=== PATIENT | male | born 1940 | race Caucasian/White ===

== ENCOUNTER 2023-03-03 20:31 | Inpatient (IN) | payer MEDICARE, OTHER ==
[~2023-03-03] VITALS: Ht 198.1 cm; Wt 68.0 kg
[2023-03-03 21:56] LABS: MEAN CORPUSCULAR HEMOGLOBIN 40.5 uug (23.8-33.4); MEAN CORPUSCULAR VOLUME 117.6 fL (73.0-96.2); PLATELET COUNT (AUTO) 204 K/uL (152-348)
[2023-03-03 22:16] LABS: CARBON DIOXIDE 23 mmol/L (21-32); CHLORIDE 100 mmol/L (98-107); CREATININE 1.1 mg/dL (0.6-1.3); UREA NITROGEN, BLOOD 15 mg/dL (7-18)
[2023-03-03 22:24] LABS: ALANINE AMINOTRANSFERASE 19 U/L (16-63); ALKALINE PHOSPHATASE 50 U/L (50-136); ASPARTATE AMINOTRANSFERASE 11 U/L (15-37); BILIRUBIN,DIRECT 0.2 mg/dL (0.0-0.2); BILIRUBIN,TOTAL 0.8 mg/dL (0.2-1.0); TOTAL PROTEIN, SERUM 7.1 g/dL (6.4-8.2)
[2023-03-03] MEDS ORDERED: HYDROMORPHONE 1 MG/1 ML DISP.SYRIN IV ONE (22:30)
[2023-03-03] MEDS ORDERED: HYDROMORPHONE 1 MG/1 ML DISP.SYRIN ONE (22:31)
--- NOTE | 2023-03-03 22:38 | NUR ---
Pt care continue as Diludid 1mg IVP given as ordered for pain 05/19.
[2023-03-03 23:00] LABS: LIPASE 20 U/L (73-393)
[2023-03-03 23:28] LABS: *BILIRUBIN,URIN NEGATIVE (NEGATIVE); *CLARITY,URINE CLEAR (CLEAR); *COLOR,URINE YELLOW (YELLOW); *KETONES,URINE 1+ (NEGATIVE); *UROBILINOGEN,URINE 0.2 E.U./dl (NORMAL); LEUKOCYTE ESTERASE ,URINE TRACE (NEGATIVE); NITRITE, URINE NEGATIVE (NEGATIVE); UGLUCOSE NEGATIVE (NEGATIVE)
[2023-03-03 23:29] LABS: *BLOOD, URINE TRACE (NEGATIVE)
[2023-03-03 23:31] LABS: BACTERIA,URINE FEW /HPF (NONE SEEN); SQUAMOUS EPITHELIAL CELL,UR NONE SEEN /HPF (NONE SEEN)
[2023-03-03] MEDS ORDERED: IOHEXOL 350 100 ML INFUS..BTL ONE (23:37)
[2023-03-03] MEDS ORDERED: SWABABLE VALVE TRANSFER SET EA MC ONE (23:37)
[2023-03-03] MEDS ORDERED: IV NORMAL SALINE 250 ML IV ONE (23:38)
[2023-03-04] MEDS ORDERED: HYDROMORPHONE 1 MG/1 ML DISP.SYRIN IV ONE (00:45)
[2023-03-04] MEDS ORDERED: HYDROMORPHONE 1 MG/1 ML DISP.SYRIN ONE (00:57)
[2023-03-04] MEDS ORDERED: ONDANSETRON 4 MG/2 ML VIAL IV PRN (01:00)
[2023-03-04] MEDS ORDERED: REMEDY ESSENTIAL ZINC PASTE 113 GM TP PRN (01:00)
[2023-03-04] MEDS ORDERED: MAGNESIUM HYDROXIDE 30 ML LIQUID UDC PO PRN (01:00)
[2023-03-04] MEDS ORDERED: TEMAZEPAM 15 MG CAPSULE PO PRN (01:00)
[2023-03-04] MEDS ORDERED: ACETAMINOPHEN 325 MG TABLET PO PRN (01:00)
[2023-03-04] MEDS ORDERED: HYDROCODONE/APAP 5-325MG TABLET PO PRN (01:00)
--- NOTE | 2023-03-04 01:00 | NUR ---
Artem Lambert called back Dr. Elizabeth patient was accepted.
--- NOTE | 2023-03-04 01:02 | NUR ---
Pt care continue as he is been medicated with Dilaudid 1mg IVP for pain 05/19 and will be admitted with [facility] and page at [phone] sent out with [employer] Judy is on .
--- NOTE | 2023-03-04 01:43 | NUR ---
Called third floor and gave report to Janett RENAE.
[2023-03-04 02:04] VITALS: BP 152/85; TEMP 98.2; O2SAT 97
[2023-03-04] MEDS: HYDROMORPHONE 1 MG/1 ML DISP.SYRIN IV PRN ×3 (02:14→10:36)
--- NOTE | 2023-03-04 02:44 | NUR ---
Received this pt from ER, via demetrius, alert oriented x 4, verbally responsive, continent, in room air, able to walk with cane. Upon admission pt was sleepy, unable to question completely. He said didn't have BM x 3 day, and complained from severe abdominal pain. Given mom and Dilaudid IV. Pt has HX; of pancreatic cancer. Vital signs within normal level. All needs are attended in this time.
[2023-03-04] MEDS: PANTOPRAZOLE SODIUM 40 MG TABLET.DR PO SCH (06:43)
[2023-03-04] MEDS ORDERED: DIPH1TAB PO (11:13)
[2023-03-04] MEDS ORDERED: BISA10SU11 RC (11:13)
[2023-03-04] MEDS ORDERED: ASPI81TA31 PO (11:13)
[2023-03-04] MEDS ORDERED: LACT10SO7 PO (11:13)
[2023-03-04] MEDS ORDERED: LEVO125T8 PO (11:13)
[2023-03-04] MEDS ORDERED: TAMS-3 PO (11:13)
[2023-03-04] MEDS ORDERED: MULT-1168 PO (11:13)
[2023-03-04] MEDS ORDERED: FINA5TAB3 PO (11:13)
[2023-03-04] MEDS ORDERED: IPRA21SP NS (11:21)
[2023-03-04] MEDS ORDERED: IMIP25TA6 PO (11:21)
[2023-03-04] MEDS ORDERED: ROSU10TA2 PO (11:27)
[2023-03-04] MEDS ORDERED: LINA1TAB5 PO (11:27)
[2023-03-04] MEDS ORDERED: LIPA1CAP15 PO (11:27)
[2023-03-04] MEDS ORDERED: OXYC30TA86 PO (11:27)
[2023-03-04] MEDS ORDERED: POLY17PO4 PO (11:27)
[2023-03-04] MEDS ORDERED: MEGE400O5 PO (11:31)
[2023-03-04] MEDS ORDERED: HYDR4TAB4 PO (12:05)
[2023-03-04] MEDS ORDERED: FENT1PAT3 TD (12:05)
[2023-03-04] MEDS ORDERED: PANT40TA2 PO (12:09)
[2023-03-04] MEDS ORDERED: HYDROMORPHONE 2 MG/1 ML DISP.SYRIN IV ONE (12:45)
[2023-03-04] MEDS ORDERED: BISACODYL 10 MG SUPP.RECT RC PRN (12:45)
[2023-03-04] MEDS ORDERED: DIPHENOXYLATE HCL/ATROP SULF TABLET PO PRN (12:45)
[2023-03-04] MEDS ORDERED: NALOXONE HCL 0.4 MG/ML AMPUL IV PRN ×3 (12:45→14:00)
[2023-03-04] MEDS ORDERED: LACTULOSE 20 G/30 ML LIQUID UDC PO PRN (12:45)
[2023-03-04] MEDS ORDERED: PANTOPRAZOLE SODIUM 40 MG TABLET.DR PO SCH (12:45)
[2023-03-04] MEDS: LEVOTHYROXINE SODIUM 125 MCG TABLET PO SCH (13:19)
[2023-03-04] MEDS: ASPIRIN 81 MG TAB.CHEW PO SCH (13:19)
[2023-03-04] MEDS: MIRALAX 17 GM POWD.PACK PO SCH (13:27)
[2023-03-04] MEDS: MEGESTROL ACETATE 400 MG/10 ML LIQUID UDC PO SCH ×2 (13:35→20:45)
[2023-03-04] MEDS: IPRATROPIUM BROMIDE NASAL 15 ML BOTTLE 42 MCG/SPRAY NS SCH (13:42)
[2023-03-04] MEDS ORDERED: FENTANYL 50 MCG/HR PATCH TD SCH ×2 (14:30)
[2023-03-04 15:09] VITALS: BP 118/71; TEMP 98.4; O2SAT 100
[2023-03-04] MEDS ORDERED: FENT1PAT6 TP (16:59)
[2023-03-04] MEDS: HYDROMORPHONE HCL 2 MG TABLET PO PRN (18:26)
[2023-03-04 20:30] VITALS: BP 108/72; TEMP 98.7; O2SAT 96
--- NOTE | 2023-03-04 20:30 | NUR ---
Received patient alert oriented, watching TV, no sob no chest pain, no complain of pain, patient continue eating his dinner, ambulate to toilet, continent of B/B, cont to monitor.
[2023-03-04] MEDS: FINASTERIDE 5 MG TABLET PO SCH (20:45)
[2023-03-04] MEDS: IMIPRAMINE HCL 25 MG TABLET PO SCH (20:45)
[2023-03-04] MEDS: ATORVASTATIN 10 MG TABLET PO SCH (20:45)
[2023-03-04] MEDS: TAMSULOSIN HCL 0.4 MG CAP.SR.24H PO SCH (20:45)
[2023-03-05] MEDS: HYDROMORPHONE HCL 2 MG TABLET PO PRN ×2 (00:41→18:57)
[2023-03-05] MEDS: IPRATROPIUM BROMIDE NASAL 15 ML BOTTLE 42 MCG/SPRAY NS SCH ×4 (00:43→21:11)
--- NOTE | 2023-03-05 04:19 | NUR ---
Patient awake, no sob no chest pain, sleep well, cont on pain management due to abdominal pain, pain medication of Dilaudid 12mg po effective at this time, cont to monitor.
[2023-03-05] MEDS: HYDROMORPHONE 1 MG/1 ML DISP.SYRIN IV PRN ×2 (05:21→09:23)
[2023-03-05 05:40] VITALS: BP 101/69; TEMP 98; O2SAT 96
[2023-03-05] MEDS: LEVOTHYROXINE SODIUM 125 MCG TABLET PO SCH (06:01)
[2023-03-05] MEDS: PANTOPRAZOLE SODIUM 40 MG TABLET.DR PO SCH (06:01)
[2023-03-05 06:45] LABS: HEMATOCRIT 30.4 % (36.7-47.1); MEAN CORPUSCULAR VOLUME 118.1 fL (73.0-96.2); PLATELET COUNT (AUTO) 188 K/uL (152-348)
[2023-03-05 07:09] LABS: CARBON DIOXIDE 26 mmol/L (21-32); CHLORIDE 102 mmol/L (98-107); PHOSPHOROUS 3.8 mg/dL (2.5-4.9); UREA NITROGEN, BLOOD 13 mg/dL (7-18)
--- NOTE | 2023-03-05 08:00 | NUR ---
RECEIVED IN BED AWAKE ALERT AND C/O ON AND OFF PAIN LEFT LOWER SIDE OF ABDOMEN. CONTINUE WITH PAIN MGT. NOTED SACRAL REDNESS. WOUND CARE CONSULT ORDERED.
[2023-03-05] MEDS: MIRALAX 17 GM POWD.PACK PO SCH (09:05)
[2023-03-05] MEDS: MEGESTROL ACETATE 400 MG/10 ML LIQUID UDC PO SCH ×2 (09:05→21:10)
[2023-03-05] MEDS ORDERED: [UNRECOGNIZED DRUG - OTHER] PO SCH (10:15)
[2023-03-05] MEDS ORDERED: LINAGLIPTIN PO SCH (10:15)
[2023-03-05] MEDS ORDERED: METFORMIN HCL PO SCH (10:15)
[2023-03-05] MEDS ORDERED: LORAZEPAM 1 MG TABLET PO PRN (10:45)
[2023-03-05] MEDS ORDERED: NALOXONE HCL 0.4 MG/ML AMPUL IV PRN ×3 (10:45→12:15)
[2023-03-05] MEDS ORDERED: HYDROMORPHONE 1 MG/1 ML DISP.SYRIN IV ONE (11:00)
[2023-03-05] MEDS: LIPASE/PROTEASE/AMYLASE 4200 UNITS CAPSULE.DR PO SCH ×2 (11:13→18:08)
[2023-03-05] MEDS ORDERED: LIPASE/PROTEASE/AMYLASE 4200 UNITS CAPSULE.DR PO SCH (12:00)
--- NOTE | 2023-03-05 12:00 | NUR ---
SEEN BY HOSPITALIST FOR FOLLOW-UP ADJUSTED MEDICATIONS FOR PAIN MGT.
[2023-03-05] MEDS ORDERED: FENTANYL 100MCG/HR PATCH TD SCH (13:00)
--- NOTE | 2023-03-05 13:07 | NUR ---
SEEN BY PALLIATIVE MD AT BEDSIDE, SEE NOTES
[2023-03-05] MEDS ORDERED: MINERAL OIL FLEET ENEMA 133 ML BOTTLE RC ONE (14:15)
[2023-03-05 14:41] LABS: EOSINOPHILS % (MANUAL) 1 % (0-8); LYMPHOCYTES % (MANUAL) 17 % (20-40); MONOCYTES % (MANUAL) 14 % (2-10); NEUTROPHILS % (MANUAL) 68 % (42-75)
[2023-03-05 15:50] VITALS: BP 103/66; TEMP 98.2; O2SAT 97
[2023-03-05 20:00] VITALS: BP 101/60; TEMP 99; O2SAT 97
--- NOTE | 2023-03-05 20:00 | NUR ---
Received patient laying in bed. Alert and oriented x4. Room air, Iv site intact and patent. Safety measures in place. Will continue to monitor and continue plan of care.
[2023-03-05] MEDS: TAMSULOSIN HCL 0.4 MG CAP.SR.24H PO SCH (21:09)
[2023-03-05] MEDS: SENNOSIDES 1 TABLET PO SCH (21:09)
[2023-03-05] MEDS: FINASTERIDE 5 MG TABLET PO SCH (21:10)
[2023-03-05] MEDS: GABAPENTIN 300 MG CAPSULE PO SCH (21:10)
[2023-03-05] MEDS: IMIPRAMINE HCL 25 MG TABLET PO SCH (21:10)
[2023-03-06 04:00] VITALS: BP 110/67; TEMP 98.7; O2SAT 96
[2023-03-06] MEDS: IPRATROPIUM BROMIDE NASAL 15 ML BOTTLE 42 MCG/SPRAY NS SCH ×3 (06:15→22:00)
[2023-03-06] MEDS: PANTOPRAZOLE SODIUM 40 MG TABLET.DR PO SCH (06:15)
[2023-03-06] MEDS: LEVOTHYROXINE SODIUM 125 MCG TABLET PO SCH (06:15)
--- NOTE | 2023-03-06 08:00 | NUR ---
PATIENT REMAINS IN BED MOST OF THE TIME, COMFORTABLE, COOPERATIVE. NO SS OF DISTRESS OR ACUTE PAIN. CONTINUE WITH PAIN MGT
[2023-03-06] MEDS: METFORMIN HCL 500 MG TABLET PO SCH (08:25)
[2023-03-06] MEDS: MEGESTROL ACETATE 400 MG/10 ML LIQUID UDC PO SCH ×2 (08:26→20:11)
[2023-03-06] MEDS: LINAGLIPTIN 5 MG TABLET PO SCH (08:26)
[2023-03-06] MEDS: MIRALAX 17 GM POWD.PACK PO SCH (08:26)
[2023-03-06] MEDS: LIPASE/PROTEASE/AMYLASE 4200 UNITS CAPSULE.DR PO SCH ×3 (08:27→17:12)
[2023-03-06] MEDS: HYDROMORPHONE HCL 2 MG TABLET PO PRN (09:19)
[2023-03-06 11:10] VITALS: BP 103/64; TEMP 98.2
--- NOTE | 2023-03-06 12:30 | NUR ---
SEEN BY HOSPITALIST FOR FOLLOW-UP WITH ORDERS SEE NOTES
[2023-03-06] MEDS ORDERED: LACTULOSE 20 G/30 ML LIQUID UDC PO ONE (13:15)
[2023-03-06] MEDS: ASPIRIN 81 MG TAB.CHEW PO SCH (13:15)
[2023-03-06] MEDS ORDERED: SORBITOL 70% SOLUTION 30 ML UDC PO ONE (13:15)
--- NOTE | 2023-03-06 13:18 | NUR ---
WOUND CARE CONSULT: PT PRESENTS WITH STAGE 2 PRESSURE ULCER WITH SURROUNDING INTACT DEEP TISSUE INJURY, PRESENT ON ADMISSION. RECOMMENDATIONS MADE FOR SKIN PROTECTION AND WOUND CARE. DISCUSSED WITH NURSING STAFF. PT DEMONSTRATES ABILITY TO TURN AND REPOSITION IN BED. MD IN AGREEMENT WITH PLAN OF CARE. Addendum: 03/06/23 at 1320 by NASEEM DAO RN Amended: Links added.
--- NOTE | 2023-03-06 14:35 | NUR ---
SEEN BY PALLIATIVE DOCTOR FOR PAIN MGT, SEE NOTES
--- NOTE | 2023-03-06 16:00 | NUR ---
PATIENT RESTING COMFORTABLY IN BED WATCHING TV, NO C/O OF PAIN. CLOSELY MONITORED
[2023-03-06 16:37] VITALS: BP 132/86; TEMP 98; O2SAT 96
[2023-03-06] MEDS: PROTEIN SUPPLEMENT (PROSTAT) 30 ML LIQUID PO SCH (16:49)
--- NOTE | 2023-03-06 17:15 | NUR ---
PATIENT STATED "I WENT TO THE BATHROOM AND COMING OUT I TRIP AND HIT MY HEAD" PATIENT NOTED BRUISING 1.5 X 1 CM FOREHEAD, 1 CM BRIDGE OF NOSE. COLD COMPRESSED APPLIED. DR JIMENES NOTIFIED SO WITH . CT HEAD ORDERED AND COMPLETED. PATIENT REMAINS ALERT AND ORIENTED X3 BP 120/60, HR 88, RR 20, T 97.8, O2 SATS 99% RA. DENIES HEADACHE, NO N/V, NO DIZZINESS.
[2023-03-06 18:37] VITALS: BP 120/60; TEMP 97.8; O2SAT 96
--- NOTE | 2023-03-06 18:55 | NUR ---
AT BEDSIDE, VERY SUPPORTIVE WITH CARE. PATIENT REMAINS ALERT AND ORIENTED X3, DENIES KEVIN, NV, DIZZINESS. ATE GOOD PORTION OF DINNER
[2023-03-06 18:57] VITALS: BP 124/62; TEMP 98; O2SAT 96
--- NOTE | 2023-03-06 19:30 | NUR ---
RECEIVED PATIENT AWAKE IN BED WITH AT BEDSIDE. PATIENT IS A/O X4. IT WAS REPORTED THAT PATIENT HAD A FALL PRIOR TO SHIFT CHANGE. SMALL BAND-AIDE NOTED TO MID-FOREHEAD. PATIENT DENIES ANY PAIN OR DISCOMFORT. DENIES ANY DIZZINESS OR N&V. NO RESP. DISTRESS NOTED/ HEPLOCK AND INTACT AND PATENT. CALL LIGHT IN REACH. ALL NEEDS ATTENDED. WILL CONTINUE TO MONITOR AND ASSESS.
[2023-03-06 20:00] VITALS: BP 102/64; TEMP 99; O2SAT 93
[2023-03-06] MEDS: TAMSULOSIN HCL 0.4 MG CAP.SR.24H PO SCH (20:11)
[2023-03-06] MEDS: IMIPRAMINE HCL 25 MG TABLET PO SCH (20:11)
[2023-03-06] MEDS: GABAPENTIN 300 MG CAPSULE PO SCH (20:11)
[2023-03-06] MEDS: ATORVASTATIN 10 MG TABLET PO SCH (20:11)
[2023-03-06] MEDS: SENNOSIDES 1 TABLET PO SCH (20:11)
[2023-03-06] MEDS: FINASTERIDE 5 MG TABLET PO SCH (20:11)
[2023-03-07 04:04] VITALS: BP 139/68; TEMP 97.6; O2SAT 93
[2023-03-07] MEDS: LEVOTHYROXINE SODIUM 125 MCG TABLET PO SCH (06:19)
[2023-03-07] MEDS: PANTOPRAZOLE SODIUM 40 MG TABLET.DR PO SCH (06:19)
[2023-03-07] MEDS: IPRATROPIUM BROMIDE NASAL 15 ML BOTTLE 42 MCG/SPRAY NS SCH ×3 (06:19→22:00)
--- NOTE | 2023-03-07 07:30 | NUR ---
RECEIVED PATIENT IN BED AWAKE ALERT AND ORIENTED DENIES PAIN OR DISCOMFORTS AT THIS TIME.HAS BAND AID ON HIS FOREHEAD WITH NO BLEEDING AT THIS TIME PATIENT INSTRUCTED TO CALL FOR ASSISTANCE TO PREVENT FALL CALL LIGHT AND PERSONAL BELONGINGS ARE WITHIN EASY REACH AT THIS TIME WILL CONTINUE TO OBSERVE.
[2023-03-07] MEDS: MEGESTROL ACETATE 400 MG/10 ML LIQUID UDC PO SCH ×2 (08:48→20:22)
[2023-03-07] MEDS: MIRALAX 17 GM POWD.PACK PO SCH (08:49)
[2023-03-07] MEDS: LIPASE/PROTEASE/AMYLASE 4200 UNITS CAPSULE.DR PO SCH ×3 (08:49→17:54)
[2023-03-07] MEDS: METFORMIN HCL 500 MG TABLET PO SCH (08:49)
[2023-03-07] MEDS: LINAGLIPTIN 5 MG TABLET PO SCH (08:50)
[2023-03-07] MEDS: PROTEIN SUPPLEMENT (PROSTAT) 30 ML LIQUID PO SCH ×2 (08:52→17:59)
[2023-03-07] MEDS ORDERED: FENTANYL 25 MCG/HR PATCH EACH TD SCH (09:00)
[2023-03-07] MEDS ORDERED: GABA300C PO (09:04)
[2023-03-07] MEDS ORDERED: LORA-259 PO (09:04)
[2023-03-07] MEDS ORDERED: SENN-175 PO (09:05)
[2023-03-07] MEDS ORDERED: IV NORMAL SALINE 500 ML IV ONE (11:45)
[2023-03-07 11:56] VITALS: BP 95/55; TEMP 97.8; O2SAT 94
--- NOTE | 2023-03-07 12:13 | NUR ---
PATIENT SEEN BY DR EMEKA JIMENES WITH ORDER TO INFUSE 500 ML NS BOLUS PATIENT HAS NO IV SITE AT THIS TIME SPOKE WITH HIM AND HE HAS AGREED TO HAVE THE HEPLOCK INSERTED BUT HE IS EATING HIS LUNCH AT THIS TIME WILL INSERT AND TRANSFUSE SOON HE IS DONE WITH LUNCH PATIENTS IS AT THE BEDSIDE.
--- NOTE | 2023-03-07 13:19 | NUR ---
FELISA INSERTED TO HIS RIGHT FOREARM GAUGE 20 WITH ONE ATTEMPT NS 5OO INFUSING AT THIS TIME ORDERED
[2023-03-07] MEDS ORDERED: FENTANYL 100MCG/HR PATCH TD SCH (14:30)
[2023-03-07] MEDS ORDERED: FENTANYL 50 MCG/HR PATCH TD SCH (14:30)
[2023-03-07 16:11] VITALS: BP 102/68; TEMP 97.9; O2SAT 94
--- NOTE | 2023-03-07 16:50 | NUR ---
RESTING IN BED FORGETFUL BED ALARM IS IN USE INSTRUCTED AND REMINDED TO USE THE CALL LIGHT FOR HELP WHENEVER HE NEEDED TO GET UP OUT OD BED AND HE EXPRESSED UNDERSTANDING.
--- NOTE | 2023-03-07 20:00 | NUR ---
PATIENT ASLEEP IN BED. EASILY AROUSABLE. BP LOW 100/55. WILL CONTINUE TO MONITOR AND ASSESS. ALL OTHER VS WNL. H/L INTACT AND PATENT, NOTED TO RIGHT FA #20 GAUGE. NO RESP. DISTRESS NOTED. ON RA SATING 94%. BED ALARM ON. CALL LIGHT IN REACH. ALL NEEDS ATTENDED.
[2023-03-07 20:13] VITALS: BP 90/56; TEMP 98.1; O2SAT 94
[2023-03-07] MEDS: IMIPRAMINE HCL 25 MG TABLET PO SCH (20:22)
[2023-03-07] MEDS: SENNOSIDES 1 TABLET PO SCH (20:22)
[2023-03-07] MEDS: GABAPENTIN 300 MG CAPSULE PO SCH (20:22)
[2023-03-07] MEDS: TAMSULOSIN HCL 0.4 MG CAP.SR.24H PO SCH (20:22)
[2023-03-07] MEDS: FINASTERIDE 5 MG TABLET PO SCH (20:23)
[2023-03-07 21:00] VITALS: BP 100/55; TEMP 98.1; O2SAT 94
--- NOTE | 2023-03-07 21:30 | NUR ---
PATIENT AWAKE IN BED, TRYING TO GET OOB. PATIENT NEEDS FREQUENT REDIRECTION.
--- NOTE | 2023-03-07 22:47 | NUR ---
PATIENT GIVEN RESTORIL 15MG PO PRN FOR SLEEP. BED ALARM ON. CALL LIGHT IN REACH. ALL NEEDS ATTENDED. WILL CONTINUE TO MONITOR AND ASSESS.
--- NOTE | 2023-03-08 | NUR ---
PATIENT ASLEEP IN BED. NO S/S OF ANY RESP. DISTRESS. NO S/S OF ANY PAIN OR DISCOMFORT. NO FACIAL GRIMACE NOTED. CALL LIGHT IN REACH. ALL NEEDS ATTENDED. WILL CONTINUE TO MONITOR AND ASSESS.
--- NOTE | 2023-03-08 03:45 | NUR ---
PATIENT AWAKE IN BED. BED ALARM WENT OFF AND PATIENT FOUND TRYING TO CLIMB OOB AND OVER THE SIDE RAIL. PATIENT STATED HE BUMPED HIS ARM AND HEAD ON THE SIDE RAIL. SMALL SKIN TEAR NOTED. PICTURE TAKEN AND PLACED IN CHART. PATIENT C/O SOME GENERALIZED PAIN. VS WNL. CALL LIGHT IN REACH. ALL NEEDS ATTENDED. WILL CONTINUE TO MONITOR AND ASSESS. BED ALARM ON.
--- NOTE | 2023-03-08 04:15 | NUR ---
PATIENT ASLEEP IN BED. N/ S/S OF ANY PAIN OR DISCOMFORT. NO FACIAL GRIMACE NOTED. BED ALARM ON. CALL LIGHT IN REACH. ALL NEEDS ATTENDED. WILL CONTINUE TO MONITOR AND ASSESS.
[2023-03-08 04:24] VITALS: BP 135/80; TEMP 97.6; O2SAT 94
[2023-03-08] MEDS: LEVOTHYROXINE SODIUM 125 MCG TABLET PO SCH (06:02)
[2023-03-08] MEDS: IPRATROPIUM BROMIDE NASAL 15 ML BOTTLE 42 MCG/SPRAY NS SCH ×2 (06:02→14:39)
[2023-03-08] MEDS: PANTOPRAZOLE SODIUM 40 MG TABLET.DR PO SCH (06:02)
[2023-03-08] MEDS ORDERED: FENTANYL 100MCG/HR PATCH TD SCH (09:00)
[2023-03-08] MEDS: MEGESTROL ACETATE 400 MG/10 ML LIQUID UDC PO SCH (09:08)
[2023-03-08] MEDS: LIPASE/PROTEASE/AMYLASE 4200 UNITS CAPSULE.DR PO SCH ×3 (09:08→17:03)
[2023-03-08] MEDS: LINAGLIPTIN 5 MG TABLET PO SCH (09:09)
[2023-03-08] MEDS: MIRALAX 17 GM POWD.PACK PO SCH (09:09)
[2023-03-08] MEDS: METFORMIN HCL 500 MG TABLET PO SCH (09:09)
[2023-03-08] MEDS: PROTEIN SUPPLEMENT (PROSTAT) 30 ML LIQUID PO SCH ×2 (09:23→17:03)
[2023-03-08 11:17] VITALS: BP 111/65; TEMP 97.7; O2SAT 96
[2023-03-08] MEDS ORDERED: CIPR500T5 PO (13:14)
--- NOTE | 2023-03-08 14:00 | NUR ---
DISCHARGE ORDER NOTED PATIENTS AWARE AND STATED THAT SHE WILL PICK HIM UP AFTER DINNER TODAY
[2023-03-08 15:19] VITALS: BP 100/57; TEMP 98.1; O2SAT 96
--- NOTE | 2023-03-08 18:32 | NUR ---
PATIENTS HERE AND PATIENT DISCHARGED TO HER CARE WITH DISCHARGE IN SATISFACTORY CONDITION INSTRUCTIONS AND SHE WAS INSTRUCTED THAT PATIENTS NEW MEDICATIONS WAS SENT ELECTRONICALLY AND SHE EXPRESSED UNDERSTANDING.
== END 2023-03-08 18:30 | disposition hospice, home (50) | DRG 947 ==
LOC: ER 20:42 → MEDSURG3 03-04 01:03
PROVIDERS: ADMIT Nurse Practitioner Acute Care; ATTEND Nurse Practitioner Acute Care
DX: G89.3 Neoplasm related pain (acute) (chronic) (principal); G93.41 Metabolic encephalopathy; C25.2 Malignant neoplasm of tail of pancreas; N39.0 Urinary tract infection, site not specified; E78.00 Pure hypercholesterolemia, unspecified; D63.0 Anemia in neoplastic disease; Z66 Do not resuscitate; L89.156 Pressure-induced deep tissue damage of sacral region; K59.03 Drug induced constipation; T40.2X5A Adverse effect of other opioids, initial encounter; Y92.019 Unspecified place in single-family (private) house as the place of occurrence of the external cause; F41.9 Anxiety disorder, unspecified; Z91.81 History of falling; B95.2 Enterococcus as the cause of diseases classified elsewhere; R03.1 Nonspecific low blood-pressure reading; Z51.5 Encounter for palliative care; R31.29 Other microscopic hematuria; Z92.21 Personal history of antineoplastic chemotherapy
CPT/HCPCS: 36415; 70030-TC; 70486; 71275; 83690; 83735; 84100; 84484; 85025; A6209; A6213; G0378; J1170; J2405; J7040; J8999; Q9967